=== PATIENT | male | born 1975 | race Caucasian/White ===

== ENCOUNTER 2017-05-14 19:09 | Inpatient (IN) | payer MEDICAID ==
[~2017-05-14] VITALS: Ht 177.8 cm; Wt 122.5 kg
[~2017-05-14 19:09] MED LIST: EXCETAB PO; VENL75TA PO
[2017-05-14 19:20] VITALS: BP 122/74; PULSE 90; RESP 16; TEMP 98.4; O2SAT 96
[2017-05-14 19:37] VITALS: BP 124/80; PULSE 158; RESP 14; O2SAT 97
[2017-05-14] MEDS ORDERED: LORazepam 2 MG/ML VIAL ONE (19:37)
[2017-05-14] MEDS ORDERED: DILTIAZEM HCL 25 MG/5 ML VIAL ONE (19:37)
[2017-05-14 19:40] VITALS: BP 133/66; PULSE 145; RESP 14; O2SAT 98
[2017-05-14] MEDS ORDERED: DILTIAZEM HCL 25 MG/5 ML VIAL IV ONE (19:45)
[2017-05-14] MEDS ORDERED: LORazepam 2 MG/ML VIAL IV PUSH ONE ×2 (19:45→22:15)
--- NOTE | 2017-05-14 19:56 | PD ---
HPI Chief Complaint: GI Complaint Time Seen by Provider: 19:28 Travel History International Travel<30 days: No Contact w/Intl Traveler<30days: No Traveled to known affect area: No History of Present Illness HPI pt was at home when he felt sudden onset of impending doom feeling , Pt called his and said " if I don't make it I love you" ' called 911 and met him in ER at [place]. pt was given Zofran in EMS and in exam room pt vomitted and then went into an SVT 176 BPM. . Pt has no significant cardiac hx , He once had a holter monitor without findings , pt years ago had abscesses in his abdomen and had long term antibiotics to cure that . pt denies risk factors for DVT or PE . Pt is extremely nauseous and vomited multiple times and that led to SVT. in exam room . PFSH Past Medical History Autoimmune Disease: No Blood Disorders: No Cancer: No Cardiovascular Problems: No Headaches: Yes Musculoskeletal: No Neurologic: No Psychiatric: No Respiratory: No Influenza Vaccination: No Past Surgical History Surgical History: No Previous Surgery Social History Alcohol Use: Yes (SOCIAL) Tobacco Use: No Substance Use: No Allergies-Medications (Allergen,Severity, Reaction): Coded Allergies: No Known Allergies (Unverified Allergy, Unknown, 05/14/17) Reported Meds & Prescriptions Reported Meds & Active Scripts Active Review of Systems Except as stated in HPI: all other systems reviewed are Neg HENT: No: Headaches Cardiovascular: No: Chest Pain or Discomfort Respiratory: No: Cough Gastrointestinal: Positive: Nausea, Vomiting, No: Abdominal Pain Musculoskeletal: No: Myalgias Psychiatric: Positive: Anxiety Physical Exam Narrative GENERAL: appears anxious, mild distress AOX3 bedside SKIN: Warm and dry. HEAD: Atraumatic. Normocephalic. EYES: Pupils equal and round. No scleral icterus. No injection or drainage. ENT: No nasal bleeding or discharge. Mucous membranes pink and moist. NECK: Trachea midline. No JVD. CARDIOVASCULAR: irregularly irregular RESPIRATORY: No accessory muscle use. Clear to auscultation. Breath sounds equal bilaterally. GASTROINTESTINAL: Abdomen soft, non-tender, nondistended. Hepatic and splenic margins not palpable. MUSCULOSKELETAL: Extremities without clubbing, cyanosis, or edema. No obvious deformities. NEUROLOGICAL: Awake and alert. No obvious cranial nerve deficits. Motor grossly within normal limits. Five out of 5 muscle strength in the arms and legs. Normal speech. PSYCHIATRIC: Appropriate mood and affect; insight and judgment normal. Data Data Last Documented VS Orders Orders Lorazepam Inj (Ativan Inj) (05/14/17 19:45) Diltiazem Inj (Cardizem Inj) (05/14/17 19:45) Lorazepam Inj (Ativan Inj) (05/14/17 19:37) Diltiazem Inj (Cardizem Inj) (05/14/17 19:37) Propranolol (Inderal) (05/14/17 20:00) Complete Blood Count With Diff (05/14/17 19:47) Comprehensive Metabolic Panel (05/14/17 19:47) Ckmb (Isoenzyme) Profile (05/14/17 19:47) Troponin I (05/14/17 19:47) Lipase (05/14/17 19:47) D-Dimer (05/14/17 19:47) Chest, Single Ap (05/14/17 ) Ondansetron Inj (Zofran Inj) (05/14/17 20:00) Ct Abd/Pel W Iv Contrast(Rout) (05/14/17 ) Ct Pulmonary Angiogram (05/14/17 ) Iohexol 350 Inj (Omnipaque 350 Inj) (05/14/17 21:27) Electrocardiogram (05/14/17 19:37) Electrocardiogram (05/14/17 20:13) Urinalysis - C+S If Indicated (05/14/17 21:32) Lactic Acid (05/14/17 21:33) Blood Culture (05/14/17 21:33) Admit Order (Ed Use Only) (05/14/17 22:11) Lorazepam Inj (Ativan Inj) (05/14/17 22:15) Labs Laboratory Tests Test 05/14/17 19:25 05/14/17 21:40 White Blood Count 16.4 TH/MM3 Red Blood Count 5.44 MIL/MM3 Hemoglobin 15.1 GM/DL Hematocrit 45.7 % Mean Corpuscular Volume 84.1 FL Mean Corpuscular Hemoglobin 27.9 PG Mean Corpuscular Hemoglobin Concent 33.1 % Red Cell Distribution Width 14.3 % Platelet Count 424 TH/MM3 Mean Platelet Volume 8.8 FL Neutrophils (%) (Auto) 46.6 % Lymphocytes (%) (Auto) 40.8 % Monocytes (%) (Auto) 9.4 % Eosinophils (%) (Auto) 2.6 % Basophils (%) (Auto) 0.6 % Neutrophils # (Auto) 7.6 TH/MM3 Lymphocytes # (Auto) 6.7 TH/MM3 Monocytes # (Auto) 1.5 TH/MM3 Eosinophils # (Auto) 0.4 TH/MM3 Basophils # (Auto) 0.1 TH/MM3 CBC Comment AUTO DIFF Differential Total Cells Counted 100 Neutrophils % (Manual) 52 % Lymphocytes % 34 % Monocytes % 10 % Eosinophils % 3 % Neutrophils # (Manual) 8.7 TH/MM3 Myelocytes 1 % Differential Comment FINAL DIFF MANUAL Platelet Estimate NORMAL Platelet Morphology Comment NORMAL Red Cell Morphology Comment NORMAL D-Dimer Quantitative (PE/DVT) GREATER THAN 35.20 MG/L FEU Blood Urea Nitrogen 22 MG/DL Creatinine 1.18 MG/DL Random Glucose 112 MG/DL Total Protein 7.5 GM/DL Albumin 3.6 GM/DL Calcium Level 8.9 MG/DL Alkaline Phosphatase 79 U/L Aspartate Amino Transf (AST/SGOT) 13 U/L Alanine Aminotransferase (ALT/SGPT) 22 U/L Total Bilirubin 0.2 MG/DL Sodium Level 141 MEQ/L Potassium Level 3.7 MEQ/L Chloride Level 105 MEQ/L Carbon Dioxide Level 22.5 MEQ/L Anion Gap 14 MEQ/L Estimat Glomerular Filtration Rate 68 ML/MIN Total Creatine Kinase 92 U/L Troponin I LESS THAN 0.02 NG/ML Lipase 122 U/L Thyroid Stimulating Hormone 3rd Gen 0.839 uIU/ML Urine Color YELLOW Urine Turbidity CLEAR Urine pH 5.5 Urine Specific [place] 1.037 Urine Protein TRACE mg/dL Urine Glucose (UA) NEG mg/dL Urine Ketones NEG mg/dL Urine Occult Blood NEG Urine Nitrite NEG Urine Bilirubin NEG Urine Urobilinogen LESS THAN 2.0 MG/DL Urine Leukocyte Esterase NEG Urine RBC LESS THAN 1 /hpf Urine WBC 1 /hpf Urine Squamous Epithelial Cells <1 /hpf Urine Mucus FEW /lpf Microscopic Urinalysis Comment CULT NOT INDICATED Lactic Acid Level 1.8 mmol/L Urine Opiates Screen NEG Urine Barbiturates Screen NEG Urine Amphetamines Screen NEG Urine Benzodiazepines Screen NEG Urine Cocaine Screen NEG Urine Cannabinoids Screen POS MDM Medical Decision Making Medical Screen Exam Complete: Yes Emergency Medical Condition: Yes Differential Diagnosis drug reaction vs ACS vs PE vs panic attack vs vomit induced arrhythmia , vs sepsis vs AR non stemi , SVT , other Narrative Course pt given IV fluid and zofran Ativan and cardizem with good results heart rate slowed to NSR and BP normal , Pt D-Dimer returns elevated and CTA pulmonary and CT abdo megative for findings pt admitted to [facility] for cardiac monitoring and cardio consult Diagnosis Primary Impression: SVT (supraventricular tachycardia) Additional Impression: Vomiting Admitting Information Admitting Physician Requests: Admit Scripts Diltiazem CD 24 HR (Diltiazem CD 24 HR) 120 Mg Caper 120 MG PO DAILY, #30 CAP 0 Refills Prov: Yoan Yu MD 05/17/17 Karl Mcguire MD May 14, 2017 19:56
[2017-05-14] MEDS ORDERED: PROPRANOLOL HCL 10 MG TAB PO ONE (20:00)
[2017-05-14] MEDS ORDERED: ONDANSETRON HCL 4 MG/2 ML VIAL IV PUSH ONE (20:00)
[2017-05-14 20:15] VITALS: BP 110/57; PULSE 78; RESP 14; O2SAT 97
[2017-05-14 20:37] LABS: AUTOMATED NEUTROPHIL # 7.6 TH/MM3 (1.8-7.7); BASOPHIL # 0.1 TH/MM3 (0-0.2); BASOPHIL % 0.6 % (0.0-2.0); EOSINOPHIL # 0.4 TH/MM3 (0-0.4); EOSINOPHIL % 2.6 % (0.0-4.0); HEMATOCRIT 45.7 % (39.0-51.0); HEMOGLOBIN 15.1 GM/DL (13.0-17.0); LYMPH % 40.8 % (9.0-44.0); LYMPHOCYTE # 6.7 TH/MM3 (1.0-4.8); MEAN CELL VOLUME 84.1 FL (80.0-100.0); MEAN CORPUSCULAR HEMOGLOBIN 27.9 PG (27.0-34.0); MEAN CORPUSCULAR HGB CONC 33.1 % (32.0-36.0); MEAN PLATELET VOLUME 8.8 FL (7.0-11.0); MONO % 9.4 % (0.0-8.0); MONOCYTE # 1.5 TH/MM3 (0-0.9); NEUT % 46.6 % (16.0-70.0); PLATELET COUNT 424 TH/MM3 (150-450); RED BLOOD COUNT 5.44 MIL/MM3 (4.50-5.90); RED CELL DISTRIBUTION WIDTH 14.3 % (11.6-17.2); WHITE BLOOD COUNT 16.4 TH/MM3 (4.0-11.0)
--- NOTE | 2017-05-14 20:43 | RADRPT ---
EXAM DATE/TIME: 05/14/2017 20:34 [facility] COMPARISON: No previous studies available for comparison. INDICATIONS : Dizziness; near syncopal episode. MEDICAL HISTORY : None. SURGICAL HISTORY : None. ENCOUNTER: Initial ACUITY: 1 day PAIN SCORE: 0/10 LOCATION: Bilateral chest FINDINGS: The heart is enlarged. The pulmonary vascular pattern is normal. The lungs are clear. CONCLUSION: Cardiomegaly. No acute focal pulmonary infiltrate or pulmonary vascular congestion. Vikas Hernandez MD on May 14, 2017 at 20:41 Board Certified Radiologist. This report was verified electronically.
[2017-05-14 20:47] LABS: ALT (GPT) 22 U/L (12-78)
[2017-05-14 20:49] LABS: ALBUMIN 3.6 GM/DL (3.4-5.0); AST (GOT) 13 U/L (15-37); BICARBONATE 22.5 MEQ/L (21.0-32.0); BLOOD UREA NITROGEN 22 MG/DL (7-18); CALCIUM 8.9 MG/DL (8.5-10.1); CHLORIDE 105 MEQ/L (98-107); CREATININE 1.18 MG/DL (0.60-1.30); GLOMERULAR FILTRATION RATE 68 ML/MIN (>89); GLUCOSE,RANDOM 112 MG/DL (74-106); SODIUM (NA) 141 MEQ/L (136-145)
[2017-05-14 20:51] LABS: ALKALINE PHOSPHATASE 79 U/L (45-117); TOTAL BILIRUBIN ADULT 0.2 MG/DL (0.2-1.0); TOTAL PROTEIN 7.5 GM/DL (6.4-8.2); TROPONIN I LESS THAN 0.02 NG/ML (0.02-0.05)
[2017-05-14 21:00] VITALS: BP 108/60; PULSE 76; RESP 14
[2017-05-14] MEDS ORDERED: IOHEXOL 350 MG/ML 10 ML VIAL (for RAD DIAG) IVCONTRAST ONE (21:27)
[2017-05-14 21:33] LABS: LYMPHOCYTES 34 % (9-44); MONOCYTES 10 % (0-8); MYELOCYTES 1 % (0-0); NEUTROPHIL # MANUAL DIFF 8.7 TH/MM3 (1.8-7.7); POLYS (SEG NEUTROPHILS) 52 % (16-70)
--- NOTE | 2017-05-14 21:52 | RADRPT ---
EXAM DATE/TIME: 05/14/2017 21:21 [facility] COMPARISON: No previous studies available for comparison. INDICATIONS : Short of breath, elevated d-dimer. IV CONTRAST: 100 cc Omnipaque 350 (iohexol) IV ; Cumulative dose for multiple exams. RADIATION DOSE: 17.44 CTDIvol (mGy) MEDICAL HISTORY : None SURGICAL HISTORY : None. ENCOUNTER: Initial ACUITY: 1 day PAIN SCALE: 0/10 LOCATION: chest TECHNIQUE: Volumetric scanning of the chest was performed using a pulmonary embolism protocol MIP images were re constructed. Using automated exposure control and adjustment of the mA and/or kV according to patien t size, radiation dose was kept as low as reasonably achievable to obtain optimal diagnostic quality images. DICOM format image data is available electronically for review and comparison. Follow-up recommendations for detected pulmonary nodules are based at a minimum on nodule size and pa tient risk factors according to Fleischner Society Guidelines. FINDINGS: PULMONARY ARTERIES: No filling defects are seen in the pulmonary arteries through the segmental level. LUNGS: Minimal posterior bibasilar atelectasis is noted. There is no consolidation or pneumothorax . No con cerning pulmonary nodule is visualized. PLEURAE: There is no pleural thickening or pleural effusion. MEDIASTINUM: There is good visualization of the great vessels of the middle mediastinum. No evidence of mediastin al or hilar adenopathy/mass. Cardiomegaly is noted. MUSCULOSKELETAL: Degenerative changes are noted throughout the thoracic spine. MISCELLANEOUS: Small hiatal hernia is noted. Colonic diverticulosis is noted. CONCLUSION: No evidence of pulmonary embolism. Minimal posterior bibasilar atelectasis. Cardiomegaly. Small hiata l hernia. Colonic diverticulosis. Degenerative changes are noted throughout the thoracic spine. Vikas Hernandez MD on May 14, 2017 at 21:48 Board Certified Radiologist. This report was verified electronically.
--- NOTE | 2017-05-14 21:54 | RADRPT ---
EXAM DATE/TIME: 05/14/2017 21:21 [facility] COMPARISON: No previous studies available for comparison. INDICATIONS : Right upper quadrant abdomen IV CONTRAST: 100 cc Omnipaque 350 (iohexol) IV ; Cumulative dose for multiple exams. ORAL CONTRAST: No oral contrast ingested. RADIATION DOSE: 29.41 CTDIvol (mGy) ; Patient body habitus MEDICAL HISTORY : Diverticulitis. SURGICAL HISTORY : None. ENCOUNTER: Initial ACUITY: 1 day PAIN SCALE: 5/10 LOCATION: abdomen TECHNIQUE: Volumetric scanning of the abdomen and pelvis was performed. Using automated exposure control and ad justment of the mA and/or kV according to patient size, radiation dose was kept as low as reasonably achievable to obtain optimal diagnostic quality images. DICOM format image data is available electro nically for review and comparison. FINDINGS: LOWER LUNGS: The visualized lower lungs are clear. Small hiatal hernia is noted. LIVER: Homogeneous density without lesion. There is no dilation of the biliary tree. No calcified gallston es. SPLEEN: Normal size without lesion. PANCREAS: Within normal limits. KIDNEYS: Normal in size and shape. There is no mass, stone or hydronephrosis. ADRENAL GLANDS: Within normal limits. VASCULAR: There is no aortic aneurysm. BOWEL/MESENTERY: Uncomplicated colonic diverticulosis is noted. ABDOMINAL WALL: Within normal limits. RETROPERITONEUM: There is no lymphadenopathy. BLADDER: No wall thickening or mass. REPRODUCTIVE: Within normal limits. INGUINAL: Bilateral inguinal hernias containing only fat are noted. MUSCULOSKELETAL: Degenerative changes and scoliosis of the lumbar spine are noted. CONCLUSION: Uncomplicated colonic diverticulosis. Bilateral inguinal hernias containing only fat. Small hiatal hernia. Degenerative changes and scoliosis of lumbar spine. Vikas Hernandez MD on May 14, 2017 at 21:51 Board Certified Radiologist. This report was verified electronically.
[2017-05-14 22:02] LABS: BILIRUBIN, URINE NEG (NEG); BLOOD, URINE NEG (NEG); GLUCOSE,URINE NEG (NEG); KETONE, URINE NEG (NEG); MUCUS URINE FEW /lpf (OCC); NITRITE,URINE NEG (NEG); PH, URINE 5.5 (5.0-8.5); SQUAMOUS EPITHELIAL CELL URINE <1 /hpf (0-5); URINE COLOR YELLOW (YELLW/STRAW); URINE LEUKOCYTE ESTERASE NEG (NEG)
[2017-05-14 22:03] VITALS: BP 119/65; PULSE 77; RESP 12; O2SAT 93
[2017-05-14] MEDS ORDERED: ONDANSETRON HCL 4 MG/2 ML VIAL IVP PRN (23:30)
[2017-05-14] MEDS ORDERED: ACETAMINOPHEN 325 MG TAB PO PRN (23:30)
[2017-05-14] MEDS ORDERED: MAGNESIUM HYDROXIDE SUSP 30 ML CUP PO PRN (23:30)
[2017-05-14] MEDS ORDERED: BISACODYL 10 MG SUPP RECTAL PRN (23:30)
[2017-05-14] MEDS ORDERED: SENNOSIDES 8.6 MG TAB PO PRN (23:30)
[2017-05-14] MEDS ORDERED: NALOXONE HCL 0.4 MG/ML AMP IV PUSH PRN (23:30)
[2017-05-14] MEDS ORDERED: LACTULOSE SYRUP 20 GM/30 ML CUP PO PRN (23:30)
[2017-05-14] MEDS ORDERED: SODIUM CHLORIDE 0.9% FLUSH 10 ML FLUSH IV FLUSH PRN (23:30)
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
[2017-05-15] VITALS (29 sets, daily range): BP systolic 117–128; BP diastolic 60–79; PULSE 61–96; RESP 14–18; TEMP 98.1–99.4; O2SAT 94–98
[2017-05-15] MEDS: HEPARIN SODIUM - SQ 10,000 UNITS/ML VIAL SQ SCH ×3 (00:15→23:20)
[2017-05-15] MEDS ORDERED: ZOLPIDEM TARTRATE 5 MG TAB PO ONE (00:30)
--- NOTE | 2017-05-15 11:42 | EKG ---
Date Performed: 05/14/2017 Time Performed: 19:37:43 PTAGE: 41 years EKG: ATRIAL FIBRILLATION WITH RAPID VENTRICULAR RESPONSE LOW QRS VOLTAGE IN PRECORDIAL LEADS MOD ERATE ST DEPRESSION ABNORMAL ECG INTERPRETATION BASED ON A DEFAULT AGE OF 39 YEARS NO PREVIOUS TRACING DOCTOR: Esperanza Hilliard Interpretating Date/Time 05/15/2017 11:40:36
--- NOTE | 2017-05-15 11:50 | EKG ---
Date Performed: 05/14/2017 Time Performed: 20:13:02 PTAGE: 41 years EKG: Sinus rhythm POSSIBLE LEFT ATRIAL ENLARGEMENT LOW QRS VOLTAGE IN PRECORDIAL LEADS POSSIBLE ANTERIOR MYOCARDIAL IN FARCTION ABNORMAL ECG PREVIOUS TRACING : 05/14/2017 19.37 When compared to prior EKG, the patient is back in sinus rh ythm. DOCTOR: Esperanza Hilliard Interpretating Date/Time 05/15/2017 11:49:52
--- NOTE | 2017-05-15 11:50 | EKG ---
Date Performed: 05/15/2017 Time Performed: 01:23:26 PTAGE: 41 years EKG: Sinus rhythm POSSIBLE LEFT ATRIAL ENLARGEMENT LOW QRS VOLTAGE IN PRECORDIAL LEADS POSSIBLE ANTERIOR MYOCARDIAL IN FARCTION ABNORMAL ECG PREVIOUS TRACING : 05/14/2017 20.13 Since the prior tracing, there has been no significant ness DOCTOR: Esperanza Hilliard Interpretating Date/Time 05/15/2017 11:50:01
--- NOTE | 2017-05-15 11:53 | HHI.PR ---
Subjective Remarks Patient says he is feeling well this morning. Denies any chest pain or shortness of breath. Denies any nausea or vomiting. concerned as patient had episode of chest pain 2 weeks ago, concerned that this could be secondary to tachycardic episode. Objective Vital Signs Date Time Temp Pulse Resp B/P (MAP) Pulse Ox O2 Delivery O2 Flow Rate FiO2 05/15/17 10:00 75 05/15/17 09:00 76 05/15/17 08:00 68 05/15/17 07:00 98.5 78 16 120/70 (87) 98 05/15/17 07:00 81 05/15/17 05:00 70 05/15/17 04:00 78 05/15/17 03:00 77 05/15/17 03:00 98.1 78 117/75 (89) 97 05/15/17 02:32 98.2 76 122/78 (93) 98 05/15/17 02:30 80 05/15/17 02:00 90 05/15/17 01:26 89 14 128/60 (82) 94 Nasal Cannula 2.00 05/15/17 00:03 96 14 118/64 (82) 97 Nasal Cannula 2.00 05/14/17 22:03 77 12 119/65 (83) 93 Nasal Cannula 2.00 05/14/17 21:00 76 14 108/60 (76) Nasal Cannula 98 05/14/17 20:15 78 14 110/57 (74) 97 Nasal Cannula 2.00 05/14/17 19:40 145 14 133/66 (88) 98 Nasal Cannula 2.00 05/14/17 19:37 158 14 124/80 (95) 97 Room Air 05/14/17 19:20 98.4 90 16 122/74 (90) 96 I/O 05/14/17 05/14/17 05/14/17 05/15/17 05/15/17 05/15/17 07:00 15:00 23:00 07:00 15:00 23:00 Intake Total 120 ml Output Total 2250 ml 300 ml Balance -2250 ml -180 ml Intake Oral 120 ml Output Urine Total 250 ml 300 ml Emesis 2000 ml # Voids 1 Result Diagram: 05/14/17192405/14/171924 Objective Remarks GENERAL: Lying in bed. Appears comfortable. SKIN: Warm and dry. HEAD: Normocephalic. EYES: No scleral icterus. No injection or drainage. NECK: Supple, trachea midline. No JVD. CARDIOVASCULAR: Regular rate and rhythm without murmurs, gallops, or rubs. RESPIRATORY: Breath sounds equal bilaterally. No accessory muscle use. GASTROINTESTINAL: Abdomen soft, non-tender, nondistended. MUSCULOSKELETAL: No cyanosis, or edema. BACK: Nontender without obvious deformity. No CVA tenderness. A/P Assessment and Plan 41-year-old male who went into the tachyarrhythmia which appear to be atrial fibrillation with RVR after the patient ate a marijuana cookie. //New onset atrial fibrillation with RVR: - Patient converted back to sinus rhythm after receiving a dose of IV Cardizem. Continue to monitor on telemetry. - Rule out ACS with serial cardiac enzymes-.Obtain 2D echocardiogram - Cardiology consulted for assistance. - Obtain TSH, UDS to ensure that no other drugs such as stimulants were involved. = Only marijuana positive on urine drug screen. TSH within normal limits //Leukocytosis of 16. Likely secondary to stress. No signs of infection. Repeat pending. //Markedly elevated d-dimer. No signs of bleeding or thrombosis. Repeat d- dimer. Check INR. Could consider follow-up with hematology as outpatient. //Suspected sleep apnea. I recommended follow-up with outpatient primary care for referral for sleep study //GI prophylaxis: Stool softener PRN constipation. DVT PPx: Heparin Discharge Planning Pending cardiology clearance. Yoan Yu MD May 15, 2017 11:53
[2017-05-15] MEDS: SODIUM CHLORIDE 0.9% FLUSH 10 ML FLUSH IV FLUSH SCH ×2 (12:29→21:22)
[2017-05-15 12:37] LABS: AUTOMATED NEUTROPHIL # 6.4 TH/MM3 (1.8-7.7); BASOPHIL % 0.4 % (0.0-2.0); EOSINOPHIL # 0.2 TH/MM3 (0-0.4); HEMATOCRIT 43.7 % (39.0-51.0); HEMOGLOBIN 14.6 GM/DL (13.0-17.0); LYMPH % 27.6 % (9.0-44.0); LYMPHOCYTE # 2.9 TH/MM3 (1.0-4.8); MEAN CELL VOLUME 82.9 FL (80.0-100.0); MEAN CORPUSCULAR HEMOGLOBIN 27.7 PG (27.0-34.0); MEAN CORPUSCULAR HGB CONC 33.4 % (32.0-36.0); MONOCYTE # 0.9 TH/MM3 (0-0.9); PLATELET COUNT 380 TH/MM3 (150-450); RED BLOOD COUNT 5.27 MIL/MM3 (4.50-5.90); RED CELL DISTRIBUTION WIDTH 14.6 % (11.6-17.2); WHITE BLOOD COUNT 10.5 TH/MM3 (4.0-11.0)
[2017-05-15 12:47] LABS: BICARBONATE 26.2 MEQ/L (21.0-32.0); CALCIUM 8.4 MG/DL (8.5-10.1); CREATININE 0.96 MG/DL (0.60-1.30)
[2017-05-15 13:04] LABS: D-DIMER 0.9 MG/L FEU (0.00-0.50)
[2017-05-15] MEDS: DILTIAZEM HCL 30 MG TAB PO SCH ×3 (14:10→23:19)
--- NOTE | 2017-05-15 14:29 | ECHRPT ---
Indication: SVT CONCLUSIONS The left ventricular systolic function is hyperdynamic with an estimated ejection fraction in the ra nge of 65- 70%. Normal left ventricular size. Wall thickness is normal. No regional wall motion abnormalities are present. There is trace tricuspid valve regurgitation. The estimated pulmonary arterial pressure is 27.6 mmHg. Trivial pulmonary valve regurgitation. BP: 117 / 75 HR: 78 Rhythm: Sinus MEASUREMENTS (Male / Female) Normal Values Technical Quality:Fair 2D ECHO LV Diastolic Diameter PLAX 5.0 cm 4.2 - 5.9 / 3.9 - 5.3 cm LV Systolic Diameter PLAX 3.3 cm IVS Diastolic Thickness 1.1 cm 0.6 - 1.0 / 0.6 - 0.9 cm LVPW Diastolic Thickness 1.1 cm 0.6 - 1.0 / 0.6 - 0.9 cm LV Relative Wall Thickness 0.4 RV Internal Dim ED PLAX 3.4 cm LVOT Diameter 2.1 cm LA Systolic Diameter LX 4.0 cm 3.0 - 4.0 / 2.7 - 3.8 cm M-MODE Aortic Root Diameter MM 3.3 cm LA Systolic Diameter MM 3.8 cm LA Ao Ratio MM 1.2 AV Cusp Separation MM 2.4 cm DOPPLER AV Peak Velocity 156.0 cm/s AV Peak Gradient 9.7 mmHg LVOT Peak Velocity 138.0 cm/s LVOT Peak Gradient 7.6 mmHg AV Area Cont Eq pk 3.1 cm MV Area PHT 5.5 cm Mitral E Point Velocity 92.3 cm/s Mitral A Point Velocity 58.7 cm/s Mitral E to A Ratio 1.6 LV E' Lateral Velocity 10.4 cm/s Mitral E to LV E' Lateral Ratio 8.9 LV E' Septal Velocity 10.9 cm/s Mitral E to LV E' Septal Ratio 8.5 TR Peak Velocity 210.0 cm/s TR Peak Gradient 17.6 mmHg Right Atrial Pressure 10.0 mmHg Pulmonary Artery Systolic Pressu 27.6 mmHg Right Ventricular Systolic Press 27.6 mmHg PV Peak Velocity 143.0 cm/s PV Peak Gradient 8.2 mmHg FINDINGS LEFT VENTRICLE The left ventricular systolic function is hyperdynamic with an estimated ejection fraction in the ra nge of 65- 70%. Normal left ventricular size. Wall thickness is normal. No regional wall motion abnormalities are present. RIGHT VENTRICLE Normal right ventricular size and systolic function. LEFT ATRIUM The left atrial size is normal. RIGHT ATRIUM The right atrial size is normal. ATRIAL SEPTUM Normal atrial septal thickness without atrial level shunting by limited color doppler interrogation. AORTA The aortic root and proximal ascending aorta are normal in size on limited imaging. MITRAL VALVE Structurally normal mitral valve. No mitral valve stenosis or regurgitation. AORTIC VALVE Trileaflet aortic valve. No aortic valve stenosis or regurgitation. TRICUSPID VALVE Structurally normal tricuspid valve. There is trace tricuspid valve regurgitation. The estimated pulmonary arterial pressure is 27.6 mmHg. PULMONARY VALVE Trivial pulmonary valve regurgitation. VESSELS The inferior vena cava is normal in size. PERICARDIUM No pericardial effusion. Jordan Miller MD, FACC, FSCAI (Electronically Signed) Final Date:15 May 2017 14:28
--- NOTE | 2017-05-15 17:37 | RADRPT ---
EXAM DATE/TIME: 05/15/2017 17:09 [facility] COMPARISON: No previous studies available for comparison. INDICATIONS : Elevated D-dimer. MEDICAL HISTORY : Migraines. Palpitations. Depression. Anxiety. Chronic back pain. SURGICAL HISTORY : None. ENCOUNTER: Initial ACUITY: 1 day PAIN SCORE: 0/10 LOCATION: Bilateral legs. TECHNIQUE: Venous ultrasound of the left and right leg was performed from the inguinal ligament to the proximal calf. Real-time, color Doppler and spectral tracing, compression and augmentation techniques were us ed. FINDINGS: RIGHT LEG: There is normal compressibility of the deep venous system from the inguinal region to the proximal ca lf. No echogenic clot is seen in the lumen of the common femoral, femoral, popliteal, and posterior tibial veins. There is a normal response of the venous system to proximal and distal augmentation an d respiration. LEFT LEG: There is normal compressibility of the deep venous system from the inguinal region to the proximal ca lf. No echogenic clot is seen in the lumen of the common femoral, femoral, popliteal, and posterior tibial veins. There is a normal response of the venous system to proximal and distal augmentation an d respiration. CONCLUSION: Normal examination. Yonas Gorman MD on May 15, 2017 at 17:36 Board Certified Radiologist. This report was verified electronically.
[2017-05-15] MEDS ORDERED: CALCIUM CARBONATE 500 MG CHEWABLE TAB CHEW PRN (17:45)
[2017-05-15] MEDS: FAMOTIDINE 20 MG TAB PO SCH (21:22)
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
[2017-05-15] MEDS: ZOLPIDEM TARTRATE 5 MG TAB PO PRN (23:07)
[2017-05-16] VITALS (26 sets, daily range): BP systolic 101–125; BP diastolic 63–86; PULSE 54–77; RESP 16–18; TEMP 97–98.5; O2SAT 96–97
[2017-05-16] MEDS: DILTIAZEM HCL 30 MG TAB PO SCH ×3 (06:00→23:55)
[2017-05-16] MEDS: FAMOTIDINE 20 MG TAB PO SCH ×2 (08:49→21:46)
[2017-05-16] MEDS: SODIUM CHLORIDE 0.9% FLUSH 10 ML FLUSH IV FLUSH SCH ×2 (08:49→21:47)
--- NOTE | 2017-05-16 10:14 | EKG ---
Date Performed: 05/15/2017 Time Performed: 06:35:38 PTAGE: 41 years EKG: Sinus rhythm Low QRS voltages in precordial leads Borderline ECG PREVIOUS TRACING : 05/15/2017 01.50 DOCTOR: Ant Lin Interpretating Date/Time 05/16/2017 10:12:37
--- NOTE | 2017-05-16 10:19 | EKG ---
Date Performed: 05/15/2017 Time Performed: 01:50:24 PTAGE: 41 years EKG: Sinus rhythm Possible anterior infarct - age undetermined Low QRS voltages in precordial leads Abnormal ECG NO PREVIOUS TRACING DOCTOR: Ant Lin Interpretating Date/Time 05/16/2017 10:18:45
--- NOTE | 2017-05-16 10:38 | PD.CARD.PN ---
Subjective Subjective Remarks Pt without CV complaints Objective Medications Current Medications Medications (Trade) Dose Ordered Sig/Buck Route Start Time Stop Time Status Last Admin (NS Flush) 2 ml UNSCH PRN IV FLUSH 05/14/17 23:30 (NS Flush) 2 ml BID IV FLUSH 05/15/17 09:00 05/16/17 08:49 (Tylenol) 650 mg Q4H PRN PO 05/14/17 23:30 (Zofran Inj) 4 mg Q6H PRN IVP 05/14/17 23:30 (Heparin Inj) 5,000 units Q12H SQ 05/15/17 00:00 05/15/17 23:20 (Narcan Inj) 0.4 mg UNSCH PRN IV PUSH 05/14/17 23:30 (Milk Of Magnesia Liq) 30 ml Q12H PRN PO 05/14/17 23:30 (Senokot) 17.2 mg Q12H PRN PO 05/14/17 23:30 (Dulcolax Supp) 10 mg DAILY PRN RECTAL 05/14/17 23:30 (Lactulose Liq) 30 ml DAILY PRN PO 05/14/17 23:30 (Cardizem) 30 mg Q6HR PO 05/15/17 14:00 05/15/17 23:19 (Ambien) 5 mg HS PRN PO 05/15/17 17:45 05/15/17 23:07 (Tums Chew) 500 mg Q2H PRN CHEW 05/15/17 17:45 05/15/17 19:53 (Pepcid) 20 mg BID PO 05/15/17 21:00 05/16/17 08:49 Vital Signs / I&O Vital Signs Date Time Temp Pulse Resp B/P (MAP) Pulse Ox O2 Delivery O2 Flow Rate FiO2 05/16/17 10:00 61 05/16/17 09:00 63 05/16/17 08:00 65 05/16/17 07:00 55 05/16/17 07:00 97.0 59 16 109/68 (82) 96 05/16/17 06:00 56 05/16/17 05:03 98.5 58 16 101/63 (76) 97 05/16/17 05:00 56 05/16/17 04:00 54 05/16/17 03:00 59 05/16/17 02:00 58 05/16/17 01:00 58 05/16/17 00:00 58 05/15/17 23:15 98.9 65 16 120/76 (91) 96 05/15/17 23:00 61 05/15/17 22:00 66 05/15/17 21:00 82 05/15/17 20:00 76 05/15/17 19:30 98.7 81 16 117/68 (84) 94 05/15/17 19:00 81 05/15/17 18:09 64 123/79 (94) 97 05/15/17 18:00 65 05/15/17 17:00 66 05/15/17 16:00 74 05/15/17 15:26 76 05/15/17 15:00 99.4 76 18 118/72 (87) 98 05/15/17 14:00 84 05/15/17 13:00 72 05/15/17 12:00 82 05/15/17 11:00 81 05/15/17 11:00 98.2 80 18 117/73 (88) 95 I/O 05/15/17 05/15/17 05/15/17 05/16/17 05/16/17 05/16/17 07:00 15:00 23:00 07:00 15:00 23:00 Intake Total 120 ml 720 ml 480 ml Output Total 300 ml 650 ml 900 ml Balance -180 ml 70 ml -420 ml Intake Oral 120 ml 720 ml 480 ml Output Urine Total 300 ml 650 ml 900 ml # Voids 1 3 # Bowel Movements 1 0 Physical Exam GENERAL: Well developed, well nourished. No acute distress. HEENT: Jugular venous pressure is normal. CHEST: Lungs clear to auscultation bilaterally. Unlabored respiratory effort. CARDIAC: Regular rate and rhythm without S3, S4, or murmur. ABDOMEN: Soft, nontender, no hepatosplenomegaly. Bowel sounds present. EXTREMITIES: No clubbing, cyanosis, or edema. Laboratory Laboratory Tests Test 05/15/17 12:05 White Blood Count 10.5 TH/MM3 Red Blood Count 5.27 MIL/MM3 Hemoglobin 14.6 GM/DL Hematocrit 43.7 % Mean Corpuscular Volume 82.9 FL Mean Corpuscular Hemoglobin 27.7 PG Mean Corpuscular Hemoglobin Concent 33.4 % Red Cell Distribution Width 14.6 % Platelet Count 380 TH/MM3 Mean Platelet Volume 8.0 FL Neutrophils (%) (Auto) 61.0 % Lymphocytes (%) (Auto) 27.6 % Monocytes (%) (Auto) 9.0 % Eosinophils (%) (Auto) 2.0 % Basophils (%) (Auto) 0.4 % Neutrophils # (Auto) 6.4 TH/MM3 Lymphocytes # (Auto) 2.9 TH/MM3 Monocytes # (Auto) 0.9 TH/MM3 Eosinophils # (Auto) 0.2 TH/MM3 Basophils # (Auto) 0.0 TH/MM3 CBC Comment DIFF FINAL Differential Comment Blood Smear Pathologist Review Prothrombin Time 10.0 SEC Prothromb Time International Ratio 1.0 RATIO D-Dimer Quantitative (PE/DVT) 0.90 MG/L FEU Blood Urea Nitrogen 16 MG/DL Creatinine 0.96 MG/DL Random Glucose 92 MG/DL Calcium Level 8.4 MG/DL Sodium Level 142 MEQ/L Potassium Level 3.8 MEQ/L Chloride Level 107 MEQ/L Carbon Dioxide Level 26.2 MEQ/L Anion Gap 9 MEQ/L Estimat Glomerular Filtration Rate 86 ML/MIN Imaging Last 72 hours Impressions Lower Extremity Ultrasound 05/15/17 0000 Signed Impressions: Service Date/Time: Monday, May 15, 2017 17:09 - CONCLUSION: Normal examination. Yonas Gorman MD Chest X-Ray 05/14/17 0000 Signed Impressions: Service Date/Time: May 20:34 - CONCLUSION: Cardiomegaly. No acute focal pulmonary infiltrate or pulmonary vascular congestion. Vikas Hernandez MD CT Angiography 05/14/17 0000 Signed Impressions: Service Date/Time: May 21:21 - CONCLUSION: No evidence of pulmonary embolism. Minimal posterior bibasilar atelectasis. Cardiomegaly. Small hiatal hernia. Colonic diverticulosis. Degenerative changes are noted throughout the thoracic spine. Vikas Hernandez MD Abdomen/Pelvis CT 05/14/17 0000 Signed Impressions: Service Date/Time: May 21:21 - CONCLUSION: Uncomplicated colonic diverticulosis. Bilateral inguinal hernias containing only fat. Small hiatal hernia. Degenerative changes and scoliosis of lumbar spine. Vikas Hernandez MD Assessment and Plan Problem List: (1) Chest pain ICD Codes: R07.9 - Chest pain, unspecified Plan: No further episodes -awaiting nuc, 2 day per radiology - ok for d/c if no ischemia (2) New onset a-fib ICD Codes: I48.91 - Unspecified atrial fibrillation Plan: doing well on present meds CHADS VASC= 0=> aspirin TSH normal Esperanza Hilliard MD May 16, 2017 10:38
[2017-05-16] MEDS ORDERED: REGADENOSON INJ 0.4 MG/5 ML SYR ONE (12:35)
--- NOTE | 2017-05-16 12:50 | HHI.PR ---
Subjective Remarks Patient seen this morning. Says he is feeling all right. Denies any chest pain or shortness of breath. Patient reporting dull low back pain in the hospital. Requesting pain medication. Objective Vital Signs Date Time Temp Pulse Resp B/P (MAP) Pulse Ox O2 Delivery O2 Flow Rate FiO2 05/16/17 11:00 64 05/16/17 11:00 97.2 61 18 117/80 (92) 96 05/16/17 10:00 61 05/16/17 09:00 63 05/16/17 08:00 65 05/16/17 07:00 55 05/16/17 07:00 97.0 59 16 109/68 (82) 96 05/16/17 06:00 56 05/16/17 05:03 98.5 58 16 101/63 (76) 97 05/16/17 05:00 56 05/16/17 04:00 54 05/16/17 03:00 59 05/16/17 02:00 58 05/16/17 01:00 58 05/16/17 00:00 58 05/15/17 23:15 98.9 65 16 120/76 (91) 96 05/15/17 23:00 61 05/15/17 22:00 66 05/15/17 21:00 82 05/15/17 20:00 76 05/15/17 19:30 98.7 81 16 117/68 (84) 94 05/15/17 19:00 81 05/15/17 18:09 64 123/79 (94) 97 05/15/17 18:00 65 05/15/17 17:00 66 05/15/17 16:00 74 05/15/17 15:26 76 05/15/17 15:00 99.4 76 18 118/72 (87) 98 05/15/17 14:00 84 05/15/17 13:00 72 I/O 05/15/17 05/15/17 05/15/17 05/16/17 05/16/17 05/16/17 07:00 15:00 23:00 07:00 15:00 23:00 Intake Total 120 ml 720 ml 480 ml Output Total 300 ml 650 ml 900 ml Balance -180 ml 70 ml -420 ml Intake Oral 120 ml 720 ml 480 ml Output Urine Total 300 ml 650 ml 900 ml # Voids 1 3 # Bowel Movements 1 0 Result Diagram: 05/15/17 1205 05/15/17 1205 Objective Remarks GENERAL: Lying in bed. Appears comfortable. Exam unchanged from yesterday. SKIN: Warm and dry. HEAD: Normocephalic. EYES: No scleral icterus. No injection or drainage. NECK: Supple, trachea midline. No JVD. CARDIOVASCULAR: Regular rate and rhythm without murmurs, gallops, or rubs. RESPIRATORY: Breath sounds equal bilaterally. No accessory muscle use. GASTROINTESTINAL: Abdomen soft, non-tender, nondistended. MUSCULOSKELETAL: No cyanosis, or edema. BACK: Nontender without obvious deformity. No CVA tenderness. A/P Assessment and Plan 41-year-old male who went into the tachyarrhythmia which appear to be atrial fibrillation with RVR after the patient ate a marijuana cookie. //New onset atrial fibrillation with RVR: - Patient converted back to sinus rhythm after receiving a dose of IV Cardizem. Continue to monitor on telemetry. - Rule out ACS with serial cardiac enzymes-.Obtain 2D echocardiogram - Cardiology consulted for assistance. - Obtain TSH, UDS to ensure that no other drugs such as stimulants were involved. = Only marijuana positive on urine drug screen. TSH within normal limits = Cardiology following. Pending stress test. Will likely be two day stress test. //Leukocytosis of 16. Likely secondary to stress. No signs of infection. Repeat pending. = Resolved. 10.5. No signs of infection. //Markedly elevated d-dimer. No signs of bleeding or thrombosis. Repeat d- dimer. Check INR. Could consider follow-up with hematology as outpatient. Repeat 0.9. //Suspected sleep apnea. I recommended follow-up with outpatient primary care for referral for sleep study //GI prophylaxis: Stool softener PRN constipation. //Chronic back pain. Likely exacerbated from uncomfortable bed position. Ibuprofen as needed. DVT PPx: Heparin Discharge Planning Pending cardiology clearance. Discussed with nursing at [facility]. Yoan Yu MD May 16, 2017 12:50
[2017-05-16] MEDS: HEPARIN SODIUM - SQ 10,000 UNITS/ML VIAL SQ SCH ×2 (14:04→23:53)
[2017-05-16] MEDS: IBUPROFEN 400 MG TAB PO PRN ×2 (14:05→21:46)
[2017-05-16] MEDS: ZOLPIDEM TARTRATE 5 MG TAB PO PRN (21:46)
[2017-05-17] VITALS (17 sets, daily range): BP systolic 107–124; BP diastolic 60–76; PULSE 54–76; RESP 16–18; TEMP 98.1–98.5; O2SAT 96–98
[2017-05-17] MEDS: DILTIAZEM HCL 30 MG TAB PO SCH ×2 (05:47→12:45)
[2017-05-17] MEDS: IBUPROFEN 400 MG TAB PO PRN (07:38)
[2017-05-17] MEDS: FAMOTIDINE 20 MG TAB PO SCH (08:51)
--- NOTE | 2017-05-17 10:15 | PD.CARD.PN ---
Subjective Subjective Remarks Pt without CV complaints Objective Medications Current Medications Medications (Trade) Dose Ordered Sig/Buck Route Start Time Stop Time Status Last Admin (NS Flush) 2 ml UNSCH PRN IV FLUSH 05/14/17 23:30 (NS Flush) 2 ml BID IV FLUSH 05/15/17 09:00 05/16/17 21:47 (Tylenol) 650 mg Q4H PRN PO 05/14/17 23:30 (Zofran Inj) 4 mg Q6H PRN IVP 05/14/17 23:30 (Heparin Inj) 5,000 units Q12H SQ 05/15/17 00:00 05/16/17 23:53 (Narcan Inj) 0.4 mg UNSCH PRN IV PUSH 05/14/17 23:30 (Milk Of Magnesia Liq) 30 ml Q12H PRN PO 05/14/17 23:30 (Senokot) 17.2 mg Q12H PRN PO 05/14/17 23:30 (Dulcolax Supp) 10 mg DAILY PRN RECTAL 05/14/17 23:30 (Lactulose Liq) 30 ml DAILY PRN PO 05/14/17 23:30 (Cardizem) 30 mg Q6HR PO 05/15/17 14:00 05/16/17 14:04 (Ambien) 5 mg HS PRN PO 05/15/17 17:45 05/16/17 21:46 (Tums Chew) 500 mg Q2H PRN CHEW 05/15/17 17:45 05/15/17 19:53 (Pepcid) 20 mg BID PO 05/15/17 21:00 05/17/17 08:51 (Motrin) 400 mg Q6H PRN PO 05/16/17 12:00 05/17/17 07:38 Vital Signs / I&O Vital Signs Date Time Temp Pulse Resp B/P (MAP) Pulse Ox O2 Delivery O2 Flow Rate FiO2 05/17/17 10:11 18 05/17/17 07:00 98.1 59 16 112/60 (77) 96 05/17/17 07:00 55 05/17/17 06:00 54 05/17/17 05:48 54 16 109/76 (87) 98 05/17/17 05:00 54 05/17/17 04:00 54 05/17/17 03:00 55 05/17/17 02:00 54 05/17/17 01:00 54 05/17/17 00:02 57 16 107/63 (78) 96 05/17/17 00:00 56 05/16/17 23:00 58 05/16/17 22:00 69 05/16/17 21:00 68 05/16/17 20:30 98.0 65 16 121/73 (89) 97 05/16/17 20:00 66 05/16/17 19:00 68 05/16/17 18:00 77 05/16/17 17:00 65 05/16/17 16:00 65 05/16/17 15:00 98.1 71 16 125/86 (99) 96 05/16/17 15:00 63 05/16/17 14:00 71 05/16/17 13:00 71 05/16/17 12:00 68 05/16/17 11:00 64 05/16/17 11:00 97.2 61 18 117/80 (92) 96 I/O 05/16/17 05/16/17 05/16/17 05/17/17 05/17/17 05/17/17 07:00 15:00 23:00 07:00 15:00 23:00 Intake Total 480 ml 240 ml 240 ml Output Total 900 ml 150 ml Balance -420 ml 240 ml 90 ml Intake Oral 480 ml 240 ml 240 ml Output Urine Total 900 ml 150 ml # Voids 3 1 # Bowel Movements 0 2 0 Physical Exam GENERAL: Well developed, well nourished. No acute distress. HEENT: Jugular venous pressure is normal. CHEST: Lungs clear to auscultation bilaterally. Unlabored respiratory effort. CARDIAC: Regular rate and rhythm without S3, S4, or murmur. ABDOMEN: Soft, nontender, no hepatosplenomegaly. Bowel sounds present. EXTREMITIES: No clubbing, cyanosis, or edema. Imaging Last 72 hours Impressions Lower Extremity Ultrasound 05/15/17 0000 Signed Impressions: Service Date/Time: Monday, May 15, 2017 17:09 - CONCLUSION: Normal examination. Yonas Gorman MD Assessment and Plan Problem List: (1) Chest pain ICD Codes: R07.9 - Chest pain, unspecified Plan: stable overnight, No further episodes CP -awaiting nuc, 2 day per radiology- part 2 today - ok for d/c if no ischemia (2) New onset a-fib ICD Codes: I48.91 - Unspecified atrial fibrillation Plan: doing well on present meds CHADS VASC= 0=> aspirin TSH normal -no change 05/17 Esperanza Hilliard MD May 17, 2017 10:15
[2017-05-17] MEDS: HEPARIN SODIUM - SQ 10,000 UNITS/ML VIAL SQ SCH (12:00)
[2017-05-17] MEDS: SODIUM CHLORIDE 0.9% FLUSH 10 ML FLUSH IV FLUSH SCH (12:45)
--- NOTE | 2017-05-17 12:50 | RADRPT ---
EXAM DATE/TIME: 05/16/2017 12:59 [place] COMPARISON: No previous studies available for comparison. INDICATIONS : Chest pain with SVT. Angina. DOSE: 30.1 mCi Tc99m Myoview at stress. 31.3 mCi Tc99m Myoview at rest. 0.4 mg Lexiscan STRESS SYMPTOMS: Shortness of breath, nausea. EJECTION FRACTION: 58% MEDICAL HISTORY : None. SURGICAL HISTORY : None. ENCOUNTER: Initial ACUITY: 1 day PAIN SCALE: 4/10 LOCATION: chest TECHNIQUE: The patient underwent pharmacologic stress with infusion of prescribed dose. Continuous ECG tracing was monitored during stress. Gated SPECT imaging was performed after stress and conventional SPECT i maging was performed at rest. The examination was performed on a SPECT/CT scanner, both attenuation and non-corrected datasets were reviewed. FINDINGS: DISTRIBUTION: The maximum perfused segment at stress is in the anterior and septal wall. PERFUSION STUDY: The pattern of perfusion at stress is within normal limits. GATED STUDY: There is intact wall motion and thickening without hypokinetic or dyskinetic segments. CONCLUSION: Negative for stress-induced ischemia. Normal wall motion. RISK CATEGORY: Low (<1% Annual Mortality Rate) Scott Mayfield MD FACR on May 17, 2017 at 12:48 Board Certified Radiologist. This report was verified electronically.
[2017-05-17] MEDS ORDERED: DILT120C50 PO (13:24)
[2017-05-17] MEDS ORDERED: DILTIAZEM-CD 120 MG CAP ER PO ONE (13:30)
--- NOTE | 2017-05-17 13:30 | HHI.DS ---
Discharge Summary Admission Date May 14, 2017 at 22:13 Discharge Date: May 17, 2017 Admitting Diagnosis SVT (1) Tachyarrhythmia ICD Code: R00.0 - Tachycardia, unspecified (2) New onset a-fib ICD Code: I48.91 - Unspecified atrial fibrillation Procedures No invasive procedures. Brief History - From Admission 41-year-old male with a medical history significant for depression, chronic back pain brought in by EMS due to extreme weakness, shortness of breath, nausea and vomiting. 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 He reports a feeling of impending doom which prompted him to call his thinking he was dying. He took about 3 ibuprofen. He proceeded to have a few episodes of vomiting. No arrival to the emergency room, the patient was found to be in SVT. The ED physician and he was given 1 dose of IV Cardizem and Ativan as he appeared very anxious at the time. On my evaluation, he is currently in sinus rhythm. He states he is feeling much better. He denies chest pain currently. 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 CBC/BMP: 05/15/17 1205 05/15/17 1205 Significant Findings Laboratory Tests Test 05/14/17 19:25 05/14/17 21:40 05/15/17 01:23 05/15/17 09:19 White Blood Count 16.4 TH/MM3 (4.0-11.0) Monocytes (%) (Auto) 9.4 % (0.0-8.0) Lymphocytes # (Auto) 6.7 TH/MM3 (1.0-4.8) Monocytes # (Auto) 1.5 TH/MM3 (0-0.9) Monocytes % 10 % (0-8) Neutrophils # (Manual) 8.7 TH/MM3 (1.8-7.7) Myelocytes 1 % (0-0) D-Dimer Quantitative (PE/DVT) GREATER THAN 35.20 MG/L FEU Blood Urea Nitrogen 22 MG/DL (7-18) Random Glucose 112 MG/DL (74-106) Aspartate Amino Transf (AST/SGOT) 13 U/L (15-37) Estimat Glomerular Filtration Rate 68 ML/MIN (>89) Troponin I LESS THAN 0.02 NG/ML LESS THAN 0.02 NG/ML LESS THAN 0.02 NG/ML Urine Specific [place] 1.037 (1.002-1.035) Urine Mucus FEW /lpf (OCC) Urine Cannabinoids Screen POS (NEG) Test 05/15/17 12:05 Monocytes (%) (Auto) 9.0 % (0.0-8.0) D-Dimer Quantitative (PE/DVT) 0.90 MG/L FEU (0.00-0.50) Calcium Level 8.4 MG/DL (8.5-10.1) Estimat Glomerular Filtration Rate 86 ML/MIN (>89) Imaging Last Impressions Myocardial Perfusion Scan Nuc Med 05/16/17 0000 Signed Impressions: Service Date/Time: Tuesday, May 16, 2017 12:59 - CONCLUSION: Negative for stress-induced ischemia. Normal wall motion. RISK CATEGORY: Low (<1%% Annual Mortality Rate) Scott Mayfield MD FACR Lower Extremity Ultrasound 05/15/17 0000 Signed Impressions: Service Date/Time: Monday, May 15, 2017 17:09 - CONCLUSION: Normal examination. Yonas Gorman MD Chest X-Ray 05/14/17 0000 Signed Impressions: Service Date/Time: May 20:34 - CONCLUSION: Cardiomegaly. No acute focal pulmonary infiltrate or pulmonary vascular congestion. Vikas Hernandez MD CT Angiography 05/14/17 0000 Signed Impressions: Service Date/Time: May 21:21 - CONCLUSION: No evidence of pulmonary embolism. Minimal posterior bibasilar atelectasis. Cardiomegaly. Small hiatal hernia. Colonic diverticulosis. Degenerative changes are noted throughout the thoracic spine. Vikas Hernandez MD Abdomen/Pelvis CT 05/14/17 0000 Signed Impressions: Service Date/Time: May 21:21 - CONCLUSION: Uncomplicated colonic diverticulosis. Bilateral inguinal hernias containing only fat. Small hiatal hernia. Degenerative changes and scoliosis of lumbar spine. Vikas Hernandez MD PE at Discharge GENERAL: Patient sitting up in bed. Appears comfortable. Alert and oriented 3. SKIN: Warm and dry. HEAD: Normocephalic. EYES: No scleral icterus. No injection or drainage. NECK: Supple, trachea midline. No JVD . CARDIOVASCULAR: Regular rate and rhythm without murmurs, gallops, or rubs. RESPIRATORY: Breath sounds equal bilaterally. No accessory muscle use. GASTROINTESTINAL: Abdomen soft, non-tender, nondistended. MUSCULOSKELETAL: No cyanosis, or edema. BACK: Nontender without obvious deformity. No CVA tenderness. Pt update on day of discharge Patient seen this morning. Says he is feeling all right. Denies any chest pain or shortness of breath. Denies any nausea or vomiting. Hospital Course Patient converted to sinus rhythm from SVT after 1 dose of IV Cardizem. CT pulmonary exam negative for pulmonary embolism as above. Patient was continued on low-dose Cardizem for prevention. Cardiology was consulted due to chest pain. Chest pain resolved upon admission. Echocardiogram with ejection fraction 6570%. Patient underwent myocardial perfusion scan with low probability. Patient cleared by cardiology for discharge. Follow-up with cardiology as outpatient. Recommend pursuing sleep evaluation for suspected sleep apnea as outpatient. For problem based summary from most recent progress note, please see below. 41-year-old male who went into the tachyarrhythmia which appear to be atrial fibrillation with RVR after the patient ate a marijuana cookie. //New onset atrial fibrillation with RVR: - Patient converted back to sinus rhythm after receiving a dose of IV Cardizem. Continue to monitor on telemetry. - Rule out ACS with serial cardiac enzymes-.Obtain 2D echocardiogram - Cardiology consulted for assistance. - Obtain TSH, UDS to ensure that no other drugs such as stimulants were involved. = Only marijuana positive on urine drug screen. TSH within normal limits = Cardiology following. Pending stress test. Will likely be two day stress test. //Leukocytosis of 16. Likely secondary to stress. No signs of infection. Repeat pending. = Resolved. 10.5. No signs of infection. //Markedly elevated d-dimer. No signs of bleeding or thrombosis. Repeat d- dimer. Check INR. Could consider follow-up with hematology as outpatient. Repeat 0.9. //Suspected sleep apnea. I recommended follow-up with outpatient primary care for referral for sleep study //GI prophylaxis: Stool softener PRN constipation. //Chronic back pain. Likely exacerbated from uncomfortable bed position. Ibuprofen as needed. DVT PPx: Heparin Discharge Planning Pending cardiology clearance. Discussed with nursing at [facility]. Pt Condition on Discharge: Good Discharge Disposition: Discharge Home Discharge Time: > 30 minutes Discharge Instructions DIET: Follow Instructions for: Heart Healthy Diet Activities you can perform: Regular-No Restrictions Follow up Referrals: Cardiology - 1 Week with Israel Lynn DO PCP Follow-up - 1 Week New Medications: Diltiazem CD 24 HR (Diltiazem CD 24 HR) 120 Mg Caper 120 MG PO DAILY, #30 CAP 0 Refills Yoan Yu MD May 17, 2017 13:30
== END 2017-05-17 14:07 | disposition home or self-care (01) | DRG 310 ==
LOC: NEPC 19:09 → NEDA 22:13 → HCIN 05-15 01:34
PROVIDERS: ADMIT Internal Medicine; ATTEND Internal Medicine
DX: I47.1 Supraventricular tachycardia (principal); F32.9 Major depressive disorder, single episode, unspecified; G89.29 Other chronic pain; M54.5 Low back pain; I48.91 Unspecified atrial fibrillation; R79.1 Abnormal coagulation profile; D72.829 Elevated white blood cell count, unspecified; F12.90 Cannabis use, unspecified, uncomplicated
CPT/HCPCS: 71045; 71275; 74177; 78452; 80048; 80053; 80307; 81001; 82550; 83605; 83690; 84443; 84484; 85007; 85025; 85027; 85379; 85610; 87040; 93005; 93017; 93306; 93970; 96374; A9502; J1644; J2060; J2405; J2785; Q9967